=== PATIENT | female | born 1935 | race Caucasian/White ===

== ENCOUNTER 2017-04-19 00:34 | Inpatient (IN) | payer MEDICARE ==
[2017-04-19 01:43] LABS: #Lymphocytes 0.5 thou/uL (1.20-3.40); #Monocytes 0.8 thou/uL (0.11-0.59); #Neutrophils 10.1 thou/uL (1.40-6.50); %Basophils 0.1 % (0.0-1.0); %Eosinophils 0.2 % (0.0-10.0); %Lymphocytes 4.2 % (21.0-51.0); %Monocytes 7.1 % (0.0-10.0); %Neutrophils 88.3 % (42.0-75.0); Hemoglobin 10.8 g/dL (12.0-16.0); Mean Corpuscular HGB CONC 33.2 g/dL (32.0-36.0); Mean Corpuscular Volume 96.3 fl (81.0-99.0); Mean Platelet Volume 8.6 fL (7.4-10.4); Platelet Count 122 thou/uL (130-400); RBC Distribution Width 11.9 % (11.5-14.5); Red Blood Cell (RBC) Count 3.38 mill/uL (4.20-5.40); White Blood Cell (WBC) Count 11.4 thou/uL (4.8-10.8)
[2017-04-19 02:05] LABS: ALT (SGPT) 14 U/L (8-55); AST (SGOT) 23 U/L (5-34); Albumin 3.5 g/dL (3.4-4.8); Alkaline Phosphatase 58 U/L (40-150); Anion Gap 13 mmol/L (10-20); BUN (Urea Nitrogen) 12 mg/dL (9.8-20.1); Bilirubin, Total 0.4 mg/dL (0.2-1.2); Calc. Creatinine Clearance 0 mL/min (70-130); Calcium 7.8 mg/dL (7.8-10.44); Carbon Dioxide 21 mmol/L (23-31); Chloride 100 mmol/L (98-107); Estimated GFR-MDRD 66; Glucose 167 mg/dL (83-110); Potassium 3.2 mmol/L (3.5-5.1); Protein, Total 5.5 g/dL (6.0-8.3); Sodium 131 mmol/L (136-145)
[2017-04-19 03:18] LABS: Bilirubin Negative (Negative); Blood, Urine Negative (Negative); Clarity CLEAR (Clear); Glucose, Urine (Dipstick) Negative (Negative); Leukocyte Negative (Negative); Nitrite Negative (Negative); Protein, Urine (Dipstick) Negative (Neg-Trace); Specific Gravity, Urine 1.015 (1.002-1.036); Urobilinogen 0.2 mg/dL (0.2-1.0)
[2017-04-19] MEDS ORDERED: Piperacillin/Tazobactam 4.5 GM in Sodium Chloride 0.9% 100 ML IVPB SCH (04:00)
[2017-04-19] MEDS ORDERED: Ondansetron HCl/PF 4 MG/2 ML Vial IVP PRN (04:00)
[2017-04-19] MEDS ORDERED: Acetaminophen 325 MG TAB PO PRN (04:00)
[2017-04-19] MEDS ORDERED: Ondansetron ODT 4 MG TAB SL PRN (04:00)
[2017-04-19] MEDS ORDERED: Sodium Chloride 0.9% 1,000 ML IV SCH (04:00)
[2017-04-19 04:22] LABS: CKMB 1.5 ng/mL (0-6.6); Troponin I 0.032 ng/mL (< 0.028)
[2017-04-19 06:02] LABS: #Lymphocytes 0.5 thou/uL (1.20-3.40); #Monocytes 0.5 thou/uL (0.11-0.59); #Neutrophils 6.6 thou/uL (1.40-6.50); %Eosinophils 0.1 % (0.0-10.0); %Lymphocytes 6.2 % (21.0-51.0); %Neutrophils 87.6 % (42.0-75.0); Hemoglobin 9.5 g/dL (12.0-16.0); Mean Corpuscular HGB CONC 33.9 g/dL (32.0-36.0); Mean Corpuscular Hemoglobin 32.6 pg (27.0-31.0); Mean Corpuscular Volume 96.1 fl (81.0-99.0); Mean Platelet Volume 9.3 fL (7.4-10.4); Platelet Count 123 thou/uL (130-400); White Blood Cell (WBC) Count 7.5 thou/uL (4.8-10.8)
[2017-04-19 06:13] LABS: CKMB 1.8 ng/mL (0-6.6); Troponin I 0.025 ng/mL (< 0.028)
[2017-04-19 06:22] LABS: Lactic Acid 2.2 mmol/L (0.5-2.2)
--- NOTE | 2017-04-19 09:42 | RAD ---
AP CHEST: Date: 04-19-17 History: Dyspnea. FINDINGS: There is ectasia of the aorta. The lungs are well aerated. No evidence of active intrathoracic diseas e is seen. No evidence of effusions, pneumonia, or pneumothorax seen. IMPRESSION: Unremarkable AP view chest. POS: C
[2017-04-19 11:07] VITALS: BMI 23.8
--- NOTE | 2017-04-19 11:20 | CT ---
PRELIMINARY REPORT/[facility]/EMERGENCY AFTER HOURS PROCEDURE: Addendum created by Edy Wade MD on 04/19/2017 5:11 AM Central Time ([place] & [place]) THIS REPORT CONTAINS FINDINGS THAT MAY BE CRITICAL TO PATIENT CARE. The findings were verbally communicated via telephone conference with Dr White at 5:07 AM STEEL FABRICATING SUPERVISOR on 04/19/2017. The findings were acknowledged and understood. Initial Report created on 04/19/2017 4:59 AM Central Time ([place] & [place]) EXAM: CT Chest Without Intravenous Contrast EXAM DATE/TIME: Exam ordered 04/19/2017 4:17 AM CLINICAL HISTORY: 81 years old, female; Signs and symptoms; Cough; Symptoms not specified; Patient HX: 81f presents for the evaluation of generalized weakness that started this evening. She reports several days of produc tive cough. Denies shortness of breath. Denies chest pain. No neuro deficits. Denies dysuria. Denies fever and chills TECHNIQUE: Axial computed tomography images of the chest without intravenous contrast. Coronal reformatted images were created and reviewed. COMPARISON: CT Abdomen Pelvis W Con 04/19/2017 4:20:52 AM FINDINGS: Lungs: There is a 9 mm mixed density lesion in the RIGHT upper lobe with apparent tenting of the tramaine cent pleural. Pleural space: Normal. No pneumothorax. No significant effusion. Heart: Normal. No cardiomegaly. No significant pericardial effusion. Mediastinum: A moderate hiatal hernia is present. Bones/joints: Normal. No acute fracture. No dislocation. Soft tissues: Normal. Vasculature: Normal. No thoracic aortic aneurysm. Lymph nodes: Normal. No enlarged lymph nodes. Liver: There is a simple left lobe hepatic cyst. Spleen: There is a partially visualized nonspecific hyperdense masslike structure extending from the spleen measuring approximately 4.5 x 4.5 x 5.3 cm. Subsequent imaging of the abdomen and pelvis from same day demonstrates perisplenic hemorrhage. In conjunction with CT abdomen pelvis, this finding eit her represents splenic laceration with hematoma at the splenic tip and subcapsular hemorrhage versus splenic mass with hemorrhage. Intraperitoneal space: There is mild RIGHT upper quadrant ascites. IMPRESSION: 1. Splenic mass with hemorrhage versus splenic laceration and subcapsular hematoma, further evaluated on CT of the abdomen and pelvis of same day. 2. There is a 9 mm mixed density lesion in the RIGHT upper lobe with apparent tenting of the adjacent pleural. Neoplastic versus inflammatory etiology is suspected. 3. A moderate hiatal hernia is present. Thank you for allowing us to participate in the care of your patient. Dictated and Authenticated by: Edy Wade MD 04/19/2017 4:59 AM Central Time ([place] & [place]) FINAL REPORT CT CHEST WITHOUT CONTRAST: Date: 04/19/17 HISTORY: Pain. COMPARISON: Chest radiograph from same day. FINDINGS/IMPRESSION: Findings and impression are concordant with preliminary report. The right upper lobe nodule has centr al air within it and may represent a cavity lesion versus focal bronchiectasis. Follow-up recommended in 3 months. CODE: [facility] POS: [facility]
--- NOTE | 2017-04-19 11:24 | CT ---
PRELIMINARY REPORT/[facility]/EMERGENCY AFTER HOURS PROCEDURE: EXAM: CT Abdomen and Pelvis With Intravenous Contrast EXAM DATE/TIME: Exam ordered 04/19/2017 4:20 AM CLINICAL HISTORY: 81 years old, female; Pain; Abdominal pain; Generalized; Patient HX: Abdominal pain (generalized); 81 f presents for the evaluation of generalized weakness that started this evening. She reports several days of productive cough. Denies dysuria. Denies fever and chills TECHNIQUE: Axial computed tomography images of the abdomen and pelvis with intravenous contrast. Coronal reformatted images were created and reviewed. COMPARISON: CT Chest WO Con 04/19/2017 4:17:42 AM FINDINGS: ABDOMEN: Liver: There is a LEFT hepatic lobulated cyst which measures fluid density. Gallbladder and bile ducts: Normal. No calcified stones. No ductal dilation. Pancreas: Normal. No mass. No ductal dilation. Spleen: There is a 4.5 x 4.5 x 5.4 cm masslike lesion extending from the anterior inferior tip of the spleen which is hyperdense in the arterial phase (best visualized on CT thorax with same day) with s ubsequent washout raising the possibility of splenic mass. There is also hyperdense fluid surrounding the spleen consistent with hemorrhage. Adrenals: There is a suspicious heterogeneous 3.5 cm LEFT adrenal mass. The adrenal glands are normal . The right adrenal gland is normal. Kidneys and ureters: The kidneys are normal. No hydronephrosis. Stomach and bowel: Normal. No obstruction. No mucosal thickening. Appendix: A normal appendix is identified. PELVIS: Bladder: The bladder is decompressed by a Ruiz catheter but is otherwise normal. There is a small am ount of intraluminal air consistent with instrumentation. Reproductive: The uterus is normal. ABDOMEN and PELVIS: Intraperitoneal space: There is mild to moderate RIGHT upper quadrant ascites. There is hyperdense fl uid in the pelvis consistent with hemorrhage. No free air. Bones/joints: No acute fracture. No dislocation. Soft tissues: Normal. Vasculature: Normal. No abdominal aortic aneurysm. Lymph nodes: Normal. No enlarged lymph nodes. IMPRESSION: 1. Splenic mass with perisplenic hemorrhage versus splenic tip laceration and perisplenic hematoma an d subcapsular hemorrhage as above. Mass with hemorrhage is favored given the enhancement characterist ics. 2. Hemorrhagic fluid it is also noted in the pelvis. 3. There is a heterogeneous 3.5 cm LEFT adrenal mass. THIS REPORT CONTAINS FINDINGS THAT MAY BE CRITICAL TO PATIENT CARE. The findings were verbally commun icated via telephone conference with Dr White at 5:07 AM SENIOR INSTRUCTIONAL DESIGNER on 04/19/2017. The findings were acknow ledged and understood. Thank you for allowing us to participate in the care of your patient. Dictated and Authenticated by: Edy Wade MD 04/19/2017 5:11 AM Central Time ([place] & [place]) FINAL REPORT CT ABDOMEN AND PELVIS WITH CONTRAST: Date: 04/19/17 HISTORY: Pain. COMPARISON: CT abdomen and pelvis dated 04/06/13. FINDINGS/IMPRESSION: Findings and impression are concordant with preliminary report. Left adrenal adenoma is present. The mass abutting the spleen measuring 4.5 cm is felt to most likely represent a sentinel clot with surro unding hemorrhage as there is no contrast enhancement between the chest and abdomen exams. At the lev el of the sentinel clot, best seen on series 601 of coronal images, image 66, is a cleft, which is ne w, indicating splenic laceration. This laceration measures 1.0 cm in size. There is moderate hemorrha ge throughout the abdomen and pelvis. Mild diverticular disease sigmoid colon. Aortoiliac contour is normal. Hepatic cyst is present. Close clinical follow up and follow up CT in 1-2 months recommended. POS: [facility]
[2017-04-19] MEDS ORDERED: Ibuprofen 600 MG TAB PO PRN (11:55)
[2017-04-19] MEDS ORDERED: Acetaminophen 500 MG TAB PO PRN (11:55)
[2017-04-19] MEDS ORDERED: traMADol HCl 50 MG TAB PO PRN ×2 (11:55)
[2017-04-19] MEDS ORDERED: TAMIFLU 75 MG PO SCH (13:30)
--- NOTE | 2017-04-19 14:15 | HP ---
HISTORY OF PRESENT ILLNESS: Jenny Stone is an 81-year-old female who lives independently in [facility]. She lives a short distance from her children. The patient is independently ambulatory and drive s. The patient began having flu-like symptoms 2 days ago. Yesterday she had a fever and her son, jona pires is a [employer] reading teacher, started Tamiflu. She has not had fever since. For the past day the patient has e xperienced left upper quadrant pain and chest pain, left lateral inferior. She presented to the [facility] room. CAT scan of abdomen and pelvis and subsequent CT scan chest, read by the [facility] and I subsequently reviewed the x-rays with our local radiologist. The patient was initially thou ght by [facility] to have a right upper lobe density of significance, but on review this is fe lt to be bronchiectasis and benign, no further workup is needed. She is a nonsmoker. The patient is noted to have a 3.5 cm left adrenal density, but on radiology review of her CAT scans these dense these are benign and this has been present since a CAT scan obtained in 2013 and is stable and no further workup is warranted. The patient did have intra-abdominal blood, and a left upper pole splenic subcapsular hematoma. [facility] report suggested this what could be a mass, but further review reveals that it is brian gn hemorrhage hematoma. The patient denies having any history of trauma, but she has been coughing a nd flu-like symptoms. She has pain with deep breathing and coughing. Her vital signs remained stabl e. On admission her hemoglobin was 9.5 and 27.9 at 0515. She is not orthostatic. Heart rate is 96, saturation 99%, 18 respiratory rate. It was felt that this splenic density is indeed an intra-abdom inal bleed and there is no concern for a splenic mass. Past CAT scans revealed granulomatous disease and [place] Currently, her pain is limited to the left upper quadrant. ALLERGIES: None. TOBACCO: Never. ALCOHOL: Rarely. MEDICATIONS: Raloxifene 60 mg a day, azithromycin 250 mg a day, pravastatin 40 mg at bedtime, Ativan 0.5 mg at bedtime, levothyroxine 75 mcg daily, oseltamivir phosphate 75 b.i.d., Plavix 75 daily, flu oxetine 60 mg daily, amlodipine 5 mg daily, metoprolol 50 mg b.i.d., aspirin 325 mg daily. PAST SURGICAL HISTORY: C-sections. PAST MEDICAL HISTORY: Hypertension, elevated cholesterol, history of TIA worked up in the past, on P lavix and aspirin. She has some visual changes during that time. In April 2012 the patient had a CAT scan of the brain, carotid Dopplers, and MRI revealing no acute disease. No hemodynamically sign ificant carotid lesion or disease. REVIEW OF SYSTEMS: Ten point noncontributory. She does have regular colonoscopies at [facility]. She has had a history of polyps. She has had siblings that have had colon cancer. Her had colon cancer and the patient's children have started colonoscopy screening at a very early age. She has a history of rectal bleeding. No cardiac or pulmonary disease in the past noted. PHYSICAL EXAMINATION: GENERAL: The patient is alert and oriented. VITAL SIGNS: Temperature 99 degrees, 96, 18 respiratory rate, 99%. HEENT: Unremarkable. NEUROLOGICAL: Intact. No focal deficits. LUNGS: Clear to auscultation. CARDIAC: Regular rate and rhythm without murmur or gallop. ABDOMEN: Soft, nontender except in left upper quadrant. She has mild tenderness and voluntary guard ing. There are no peritoneal signs. Abdomen is not distended. She has good bowel sounds. EXTREMITIES: Unremarkable. Palpable pulses. No ankle edema. LYMPH: No evidence of cervical, axillary or groin lymphadenopathy. NEURO: Neurologically intact. No focal deficits. LABORATORY: White count 11, hemoglobin 10.8, platelet count 122,000. Sodium 131, potassium 3.2, chl oride 100, carbon dioxide 21, glucose 167. ASSESSMENT AND PLAN: 1. Splenic bleed, upper pole spontaneous during a coughing episode. There is no history of trauma. Clearly radiological evaluation and review reveals this is a subcapsular problem and there is no heath dence of a splenic mass and no suggestion of a tumor or malignancy. Would observe her, advance her d iet slowly, check serial hemoglobins and expect discharge in the next 48 hours. I have discussed wit h family the unlikely possibility of splenectomy and unlikely possibility of a splenic embolization. They agree with the treatment plan. Questions have been answered. 2. Left adrenal adenoma, benign, stable compared to 2013 CAT scan. 3. Right upper lobe density, benign per CAT scan. 4. Hypertension. 5. On aspirin and Plavix for prior transient ischemic attacks. We will hold these anticoagulants fo r now she can resume them in the next 2 weeks.
[2017-04-19 15:08] LABS: #Monocytes 0.6 thou/uL (0.11-0.59); #Neutrophils 4.3 thou/uL (1.40-6.50); %Basophils 0.1 % (0.0-1.0); %Eosinophils 0.2 % (0.0-10.0); %Lymphocytes 16.5 % (21.0-51.0); %Monocytes 10.7 % (0.0-10.0); %Neutrophils 72.4 % (42.0-75.0); Hemoglobin 9.4 g/dL (12.0-16.0); Mean Corpuscular HGB CONC 34.6 g/dL (32.0-36.0); Mean Corpuscular Hemoglobin 32.9 pg (27.0-31.0); Mean Corpuscular Volume 95.1 fl (81.0-99.0); Mean Platelet Volume 8.9 fL (7.4-10.4); Platelet Count 130 thou/uL (130-400); RBC Distribution Width 12.2 % (11.5-14.5); Red Blood Cell (RBC) Count 2.87 mill/uL (4.20-5.40); White Blood Cell (WBC) Count 5.9 thou/uL (4.8-10.8)
[2017-04-19] MEDS ORDERED: ISOVUE-370 76%-LOCM 1 ML ONE (16:00)
[2017-04-19] MEDS: TAMIFLU 75 MG PO SCH (20:57)
[2017-04-19] MEDS ORDERED: Pravastatin Sodium 40 MG TAB PO SCH (21:00)
[2017-04-19] MEDS ORDERED: Lorazepam 1 MG TAB PO SCH (21:00)
[2017-04-19] MEDS ORDERED: Oseltamivir 75 MG CAP PO SCH (21:00)
[2017-04-20 05:25] LABS: #Lymphocytes 1.2 thou/uL (1.20-3.40); #Monocytes 0.5 thou/uL (0.11-0.59); #Neutrophils 2.8 thou/uL (1.40-6.50); %Basophils 0.3 % (0.0-1.0); %Eosinophils 1.1 % (0.0-10.0); %Lymphocytes 26.9 % (21.0-51.0); %Monocytes 11.7 % (0.0-10.0); %Neutrophils 60.1 % (42.0-75.0); Hemoglobin 9.4 g/dL (12.0-16.0); Mean Corpuscular HGB CONC 33.2 g/dL (32.0-36.0); Mean Corpuscular Volume 96.3 fl (81.0-99.0); Mean Platelet Volume 8.7 fL (7.4-10.4); Platelet Count 142 thou/uL (130-400); RBC Distribution Width 12.2 % (11.5-14.5); Red Blood Cell (RBC) Count 2.94 mill/uL (4.20-5.40); White Blood Cell (WBC) Count 4.6 thou/uL (4.8-10.8)
[2017-04-20 05:41] LABS: Anion Gap 8 mmol/L (10-20); BUN (Urea Nitrogen) 11 mg/dL (9.8-20.1); Calc. Creatinine Clearance 69 mL/min (70-130); Calcium 8.3 mg/dL (7.8-10.44); Carbon Dioxide 27 mmol/L (23-31); Chloride 104 mmol/L (98-107); Estimated GFR-MDRD 88; Glucose 100 mg/dL (83-110); Potassium 3.2 mmol/L (3.5-5.1); Sodium 136 mmol/L (136-145)
[2017-04-20] MEDS ORDERED: Levothyroxine Sodium 75 MCG TAB PO SCH (06:00)
[2017-04-20] MEDS: TAMIFLU 75 MG PO SCH (08:30)
[2017-04-20] MEDS ORDERED: Amlodipine 5 MG TAB PO SCH (09:00)
[2017-04-20] MEDS ORDERED: Azithromycin 250 MG TAB PO SCH (09:00)
[2017-04-20] MEDS ORDERED: DULoxetine 60 MG CAP PO SCH (09:00)
[2017-04-20] MEDS ORDERED: Polyethylene Glycol 3350 17 GM Packet PO SCH (09:00)
[2017-04-20 12:28] VITALS: BP 114/77; TEMP 98.4
--- NOTE | 2017-04-20 16:56 | PRG ---
DATE OF SERVICE: 04/20/2017 SUBJECTIVE: Ms. Stone is doing well. Her hemoglobin is stable. OBJECTIVE: VITAL SIGNS: Stable. LUNGS: Clear to auscultation. CARDIAC: Regular rate and rhythm without murmur or gallop. ABDOMEN: Soft and nontender. Her abdominal pain is resolved. ASSESSMENT AND PLAN: Spontaneous splenic bleeding secondary to the coughing from flu symptoms. Hemo globin is stable. She will take iron and vitamins at home. She will follow up in my office p.r.n.
--- NOTE | 2017-04-20 20:32 | DIS ---
DATE OF ADMISSION: 04/19/2017 DATE OF DISCHARGE: 04/20/2017 DISCHARGE DIAGNOSIS: Splenic rupture secondary to coughing, secondary to flu syndrome. No history o f fall or trauma. Patient on Plavix and aspirin, which she will hold for two weeks. HISTORY: An 81-year-old female developed flu-like symptoms and then subsequently developed left uppe r quadrant pain and chest pain and she was seen in the emergency room, flu documented by testing and CAT scan of abdomen and pelvis and chest revealed a benign adrenal adenoma left, unchanged since year s past CAT scan and intraperitoneal blood with a subcapsular hematoma, apex, spleen. The patient rem ained hemodynamically stable, observe for 48 hours, convalesced, become pain free. Hemoglobin remain ed stable. Discharge hemoglobin of 9.4, admitted with a hemoglobin of 10.8. She will resume her angie e medications, resume vitamins and iron [id number]. She will hold her Plavix and aspirin for 2 weeks and resume it after that. Avoid activities that would put her at risk for falling such as reji id ladders and other impact physical activities. Resume home medications, raloxifene 60 mg a day, pr avastatin 40 mg a day, Ativan 0.5 mg at bedtime, levothyroxine 75 mcg daily, oseltamivir phosphate 75 mg b.i.d., hold Plavix and aspirin for 2 weeks, amlodipine 5 mg daily, metoprolol 50 mg b.i.d., dulo xetine 60 mg at bedtime.
--- NOTE | 2017-04-29 17:49 | EKG ---
Test Reason : Blood Pressure : / mmHG Vent. Rate : 096 BPM Atrial Rate : 096 BPM P-R Int : 118 ms QRS Dur : 072 ms QT Int : 388 ms P-R-T Axes : 004 034 037 degrees QTc Int : 490 ms Normal sinus rhythm Nonspecific ST and T wave abnormality Abnormal ECG Confirmed by ALCIDES COFFEY D.O. ([id number]), associate editor ALBERTO YOUNG ([id number]) on 04/29/2017 5:48:12 PM Referred By: Confirmed By:ALCIDES COFFEY D.O.
== END 2017-04-20 16:20 | disposition home or self-care (01) | DRG 816 ==
LOC: ERS 00:34 → SURG A 03:55
PROVIDERS: ADMIT Specialist; ATTEND Specialist
DX: D73.5 Infarction of spleen (principal); R50.9 Fever, unspecified; D35.02 Benign neoplasm of left adrenal gland; I10 Essential (primary) hypertension; Z86.73 Personal history of transient ischemic attack (TIA), and cerebral infarction without residual deficits; Z79.01 Long term (current) use of anticoagulants; Z79.84 Long term (current) use of oral hypoglycemic drugs; Z79.82 Long term (current) use of aspirin; E78.5 Hyperlipidemia, unspecified; F41.9 Anxiety disorder, unspecified; R05 Cough
CPT/HCPCS: 36415; 51703; 71045; 71250; 74177; 80048; 80053; 81003; 82550; 82553; 83605; 84484; 85025; 86850; 86900; 86901; 87040; 87086; 87804; 93005; 96361; 96365; 96375; J2543; J3370; J7050

== ENCOUNTER 2018-02-24 20:45 | Emergency (ER) | payer MEDICARE ==
--- NOTE | 2018-02-24 21:24 | RAD ---
RIGHT ELBOW FOUR VIEWS: 02/24/18 HISTORY: Fall. Pain. FINDINGS: There is a displaced olecranon fracture. There is associated joint effusion and soft tissue swelling. IMPRESSION: Displaced olecranon fracture. POS: [facility]
[2018-02-24] MEDS ORDERED: HYDROcodone/Acetaminophen 5/325 mg Tablet ONE (21:36)
== END 2018-02-24 22:10 | disposition home or self-care (01) ==
LOC: ERS 20:45
DX: S52.021A Displaced fracture of olecranon process without intraarticular extension of right ulna, initial encounter for closed fracture (principal); E78.5 Hyperlipidemia, unspecified; I10 Essential (primary) hypertension; F32.9 Major depressive disorder, single episode, unspecified; Z86.73 Personal history of transient ischemic attack (TIA), and cerebral infarction without residual deficits; Z79.899 Other long term (current) drug therapy; W17.89XA Other fall from one level to another, initial encounter
CPT/HCPCS: 24670

== ENCOUNTER 2019-02-16 23:08 | Emergency (ER) | payer MEDICARE ==
[2019-02-16 23:56] LABS: #Basophils 0.1 thou/uL (0.0-0.2); #Eosinphils 0.1 thou/uL (0.0-0.7); #Lymphocytes 2.3 thou/uL (1.20-3.40); #Monocytes 0.7 thou/uL (0.11-0.59); #Neutrophils 4.8 thou/uL (1.40-6.50); %Basophils 0.7 % (0.0-1.0); %Eosinophils 1.8 % (0.0-10.0); %Monocytes 8.3 % (0.0-10.0); %Neutrophils 60.3 % (42.0-75.0); Hemoglobin 13.6 g/dL (12.0-16.0); Mean Corpuscular HGB CONC 33.2 g/dL (32.0-36.0); Mean Corpuscular Hemoglobin 31.2 pg (27.0-31.0); Mean Platelet Volume 9.3 fL (7.4-10.4); Platelet Count 211 thou/uL (130-400); RBC Distribution Width 12.5 % (11.5-14.5); Red Blood Cell (RBC) Count 4.36 mill/uL (4.20-5.40)
[2019-02-16 23:59] LABS: ALT (SGPT) 21 U/L (8-55); AST (SGOT) 26 U/L (5-34); Albumin 4.7 g/dL (3.4-4.8); Alkaline Phosphatase 58 U/L (40-110); Anion Gap 13 mmol/L (10-20); BUN (Urea Nitrogen) 15 mg/dL (9.8-20.1); Bilirubin, Total 0.5 mg/dL (0.2-1.2); Calc. Creatinine Clearance 0 mL/min (70-130); Calcium 9.5 mg/dL (7.8-10.44); Carbon Dioxide 29 mmol/L (23-31); Chloride 100 mmol/L (98-107); Estimated GFR-MDRD 52; Globulin 2.5 g/dL (2.4-3.5); Glucose 110 mg/dL (83-110); Potassium 3.3 mmol/L (3.5-5.1); Protein, Total 7.2 g/dL (6.0-8.3); Sodium 139 mmol/L (136-145)
--- NOTE | 2019-02-17 07:57 | CT ---
PRELIMINARY REPORT/[facility]/EMERGENCY AFTER HOURS PROCEDURE: PROCEDURE INFORMATION: Exam: CT Head Without Contrast Exam date and time: 02/17/2019 12:03 AM Clinical history: 83 years old, female; Patient HX: Er 8. Dizziness; PT states her BP was high at angie e highest recorded BP was 193/106 TECHNIQUE: Imaging protocol: Computed tomography of the head without contrast. COMPARISON: No relevant prior studies available. FINDINGS: Brain: Volume loss and chronic small vessel ischemic change. No brain edema. No intracranial hemorrha ge. Ventricles: Normal. No ventriculomegaly. Bones/joints: Unremarkable. No acute fracture. Sinuses: Visualized sinuses are unremarkable. No fluid levels. Mastoid air cells: Visualized mastoid air cells are well aerated. Soft tissues: Unremarkable. IMPRESSION: No acute brain findings. Thank you for allowing us to participate in the care of your patient. Dictated and Authenticated by: Simeon Suarez MD 02/17/2019 12:10 AM Central Time ([place] & [place]) FINAL REPORT HEAD CT WITHOUT CONTRAST: HISTORY: Dizziness and hypertension. COMPARISON: 02/17/2013. FINDINGS: This report is in agreement with the preliminary report by [facility]. No acute intracranial process. POS: [facility]
== END 2019-02-17 00:45 | disposition home or self-care (01) ==
LOC: ERS 23:08
DX: I10 Essential (primary) hypertension (principal); E78.5 Hyperlipidemia, unspecified; E78.00 Pure hypercholesterolemia, unspecified; F32.9 Major depressive disorder, single episode, unspecified; Z86.73 Personal history of transient ischemic attack (TIA), and cerebral infarction without residual deficits; Z79.899 Other long term (current) drug therapy
CPT/HCPCS: 36416; 70450; 80053; 84484; 85025; 93005